=== PATIENT | female | born 1995 | race Caucasian/White ===

== ENCOUNTER 2019-09-30 09:55 | Outpatient (CLI) | payer OTHER, SELFPAY ==
[2019-09-30 10:54] LABS: Hematocrit 37.9 % (37.0-47.0); Hemoglobin 11.7 g/dL (12.0-15.0); Mean Corpuscular HGB Conc 30.9 g/dl (32-36); Mean Corpuscular Hemoglobin 25.4 pg (26-34); Mean Corpuscular Volume 82.2 fl (80-100); Mean Platelet Volume 9.5 fl (7.4-10.4); Platelet Count Result 265 k/mm3 (150-375); Red Blood Count 4.61 M/mm3 (4.2-5.4); Red Cell Distribution Width 14.5 % (11.5-14.5)
[2019-10-01 09:02] LABS: Rapid Plasma Reagin Non-Reactive (NonReactive)
== END 2019-09-30 09:56 | disposition home or self-care (01) ==
LOC: ANHLAB 09:59
PROVIDERS: Visit Provider Obstetrics & Gynecology
DX: Z01.818 Encounter for other preprocedural examination (principal); O34.219 Maternal care for unspecified type scar from previous cesarean delivery
CPT/HCPCS: 36415; 85027; 86592; 86850; 86900; 86901

== ENCOUNTER 2019-10-01 05:41 | Inpatient (IN) | payer OTHER, SELFPAY ==
--- NOTE | 2019-09-11 15:24 | PC.NURSE ---
VERIFIED WITH OR SCHEDULE AND PATIENT--C/S ON 10/01/19 AT 0730 FOR BREECH PATIENT GIVEN REQUISITION FOR LAB DRAW ON 09/30/19
[2019-10-01] VITALS (55 sets, daily range): BP systolic 78–130; BP diastolic 29–91; PULSE 64–124; RESP 14–22; TEMP 36.1–36.8; O2SAT 83–100; BMI 38.3
--- NOTE | 2019-10-01 05:41 | LDADM ---
This patient, Leonor Vázquez, was admitted to Labor/Delivery/Recovery 120 on 10/01/19 at 05:41. Plans for labor, pain management and were discussed with patient. Patient/family oriented to hospital policies and general routines including ID bracelet, bed and alarms, visiting hours, pain management, procedures, bathroom and other care routines, personal items, smoking policy, room service/diet and guest tray routines, infant security routines, and visiting hours. Patient/Family are encouraged to report perceived risks to care and to ask questions if they do not understand what they are told or what they should do. See OBIX for further documentation.
[2019-10-01] MEDS: LACTATED RINGERS 1,000 ML 125 ML IV CONT ×2 (06:30→07:05)
--- NOTE | 2019-10-01 07:07 | P.HP_ITS ---
H&P: HPI History of Present Illness Chief complaint: SECTION Narrative: Leonor Vázquez is a 24 year old female presents for due to breech presentation. Discussed ECV, declined. P[facility] records on chart. Review of Systems Constitutional: Constitutional: Reports no additional constitutional complaints Cardiovascular: Cardiovascular: Reports no additional cardiovascular complaints Respiratory: Respiratory: Reports no additional respiratory complaints Gastrointestinal: Gastrointestinal: Reports no additional gastrointestinal complaints Genitourinary: Genitourinary: Reports no additional female genitourinary complaints [facility] Family History Family History Father Kidney disease Grandparent Acute myocardial infarction Social History Social History Substance use: never Spiritual care concerns: No Meds Home Medications and Allergies Home Medications Medication Instructions Recorded Confirmed Type PNV cmb#95-ferrous fumarate-FA 1 tablet PO DAILY 09/11/19 09/11/19 History [] Allergies Allergy/AdvReac Type Severity Reaction Status Date / Time No Known Allergies Allergy Verified 09/11/19 14:53 Vital Signs Vital Signs - 24 hr 10/01/19 06:00 10/01/19 06:02 10/01/19 06:15 Pulse Rate 98 98 102 H Blood Pressure 115/70 118/62 118/75 10/01/19 06:30 Pulse Rate 104 H Blood Pressure 114/73 Exam Const: General: cooperative Nutritional Appearance: average body habitus Limitations: no limitations Resp: Auscultation: clear to auscultation bilaterally Cardio: Rate: regular rate Rhythm: regular rhythm GI: Inspection: normal to inspection GI Palp: Yes Other GI palpation findings present (FH 40cm/breech/FHT 130-140) Percussion: Yes normal to percussion Auscultation: normal bowel sounds : External Female Exam: normal external appearance Assessment and Plan Assessment and plan (1) Breech presentation: Code(s): O32.1XX0 - Maternal care for breech presentation, not applicable or unspecified Status: Acute Assessment and Plan: delivery
[2019-10-01] MEDS: ceFAZolin 2 GM/D5W 50 ML 2 GM/50 ML BAG IVPB (07:17)
--- NOTE | 2019-10-01 08:02 | WPDANESEPPF ---
Anes - Initial Pre Proc Eval Procedure: Operation Date: 10/01/19 07:30 Proposed Procedures p Primary Section - Hari Morgan MD Date/Time: 10/01/19 08:02 Surgeon: Hari Morgan MD Pre Op Diagnosis: SECTION Patient Data Age: 24 Gender: F Height: 5 ft 5 in Weight: 104.5 kg Last Vital Signs Pulse 104 H 10/01/19 06:30 BP 114/73 10/01/19 06:30 Allergies Allergy/AdvReac Type Severity Reaction Status Date / Time No Known Allergies Allergy Verified 09/11/19 14:53 Home Medications Medication Instructions Recorded Confirmed Type PNV cmb#95-ferrous fumarate-FA 1 tablet PO DAILY 09/11/19 09/11/19 History [] Patient hx anesthesia problems: none Family hx anesthesia problems: none PMFSH Family History Family History Father Kidney disease Grandparent Acute myocardial infarction Social History Social History Substance use: never Spiritual care concerns: No Anes - Eval Final PreProcedure Day of Procedure 10/01/19 08:02 Patient weight: obese Heart: regular rate and rhythm Lungs: clear to auscultation Airway: Mallampati scale class II Neurological: alert and oriented Last oral intake: >/= 8 hours ASA classification: II Emergent: no Anesthetic plan: proceed Anesthesia type and monitoring: regional spinal and standard monitoring Informed Consent: The patient's anesthetic plan and its attendant risks and benefits were discussed with the patient/family/POA. Questions were solicited and answers provided to the satisfaction of the patient/family/POA.
--- NOTE | 2019-10-01 08:09 | PM.OBPRVD ---
OB - Delivery Note Procedure Procedure: Procedures Operation Date: 10/01/19 07:30 <No data on this case meets the specified criteria> Route of delivery: Estimated blood loss (mL): 580 Anesthesia type: Spinal Disposition: PACU Narrative: Patient was prepped and draped in the usual sterile manner for this procedure. Pfannenstiel incision was made and carried down to the fascia. Fascia was then next extended bilaterally the length of the skin incision. Fascia was incised superiorly and inferiorly dissected away from the rectus muscles which were bluntly dissected. Peritoneum was readily entered bladder flap was developed. Uterus was scored and extended the lower segment. Clear fluid was noted and the breech was delivered without difficulty cord was clamped and passed off the operative field. Manual removal of the placenta followed. Uterus was exteriorized cleared of membranes and clots and then closed using a 0 Monocryl in a running interlocking manner with good approximation hemostasis noted. Uterus was turned the abdomen gutters clear serosanguineous fluid and clots in the uterine incision was still hemostatic. Fascia was approximated using 0 Vicryl from the left angle to the midline and the right angle to the midline to approximate. Subcutaneous tissue was irrigated cauterized in approximately 0 plain suture. [place] were then used to approximate the skin edges. Immediate postop condition of mother and baby were both excellent. Baby Weeks of gestation at delivery: 39 Infant gender: Female Weight (pounds): 8 Weight (ounces): 1 presentation: breech Placenta delivery description: Manual Removal score one minute: 9 score five minutes: 9
--- NOTE | 2019-10-01 11:05 | PC.NURSE ---
Patient transferred to post room #288 per stretcher from labor and delivery. Support person present. Oriented to unit, room, information board, rooming in, admission packet and security measures. Patient verbalizes understanding.
--- NOTE | 2019-10-01 12:30 | PC.NURSE ---
Mother called out for assist with feeding. Reviewed feeding cues, frequencies, duration of feedings, feeding elimination flow sheet, and signs of adequate intake. Demonstrated stimulation techniques to wake infant for feeding. Assisted with to breast. Reviewed positioning/alignment in cross cradle, holding breast in U hold and guided asymmetrical latch on. Discussed rational for each. was able to latch correctly. nursed eagerly, with steady draws and frequent swallowing noted. Reviewed signs of a correct latch, effective nursing and suck swallow ratio. Infant was able to maintain latch without discomfort to mother. Nipple care reviewed. Mother switched to cradle positioning, infant was able to maintain latch. Instructed mother to call out for RN assistance if she is unable to latch for feeding or she has discomfort with nursing. Instructed feeding should be initiated three hours from start of last feeding or if feeding cues are noted before. Mother voiced understanding of information shared.
[2019-10-01] MEDS: DEXTROSE 5%/0.45% SOD CHL 1,000 ML 125 ML IV CONT (14:20)
[2019-10-01] MEDS: IBUPROFEN 600 MG TABLET PO ×2 (16:02→23:16)
[2019-10-01] MEDS: ONDANSETRON INJ 4 MG/2 ML VIAL IV PUSH (20:20)
[2019-10-02 04:30] VITALS: BP 112/60; PULSE 82; RESP 16; TEMP 36.3; O2SAT 100
[2019-10-02] MEDS: IBUPROFEN 600 MG TABLET PO ×4 (04:54→23:50)
--- NOTE | 2019-10-02 07:30 | PC.NURSE ---
PT introductions made and plan of care discussed per post op c section, pain management, breast feeding, daily care activities. PT verbalized understanding of such care.
[2019-10-02] MEDS: POLYSACCHARIDE IRON COMPLEX 150 MG CAPSULE PO ×2 (09:32→17:48)
[2019-10-02] MEDS: MULTIVIT/MIN/PREN/FOL AC/IRON TABLET 1 TAB PO (09:32)
[2019-10-02] MEDS: DOCUSATE SODIUM 100 MG CAPSULE PO ×2 (09:32→17:48)
[2019-10-02] MEDS: SIMETHICONE 80 MG TAB.CHEW PO ×5 (09:33→22:36)
--- NOTE | 2019-10-02 09:35 | PM.OBPNVD ---
OB - PN: Subj Subjective Date/time seen: 10/02/19 09:35 Interval history: 24yo s/p LTCS for breech presentation on 10/01. Doing well this morning. Some soreness and pain. Denies shortness of breath, chest pain. Tolerating diet without nausea. Passing flatus. Patient comments: no complaints and pain well controlled [place] baby status: doing well OB - PN A/P Assessment and Plan (1) delivery, delivered, current hospitalization: Code(s): O82 - Encounter for delivery without indication Status: Acute Assessment and Plan: Routine /postop care Ambulate Pain management Time Spent With Patient Time: Total time spent is greater than 50% in coordination of care (as documented) at patient's floor/unit and/or counseling patient: Exam Const: General: comfortable, no acute distress, alert and awake Orientation/consciousness: patient oriented x3 Resp: Effort & Inspection: normal respiratory effort Auscultation: clear to auscultation bilaterally Cardio: Rate: regular rate GI: Other: soft, nontender, nondistended Psych: Appearance: grossly normal Affect: normal affect Attitude: cooperative Judgement: Good judgement present (Psych)
--- NOTE | 2019-10-02 09:49 | WPDANLDPN2 ---
Anes-Prog Note L&D Date/Time: 10/02/19 09:49 Comfortable throughout: section Neuraxial method: spinal Epidural/Spinal procedure site: clean & non-tender Neuro status: Neuro function grossly intact. Cardiovascular status: normal Respiratory status: normal Airway patency: baseline Mental status: baseline Post-Op hydration status: normal Vital Signs: Last Vital Signs Temp 36.3 C L 10/02/19 04:30 Pulse 82 10/02/19 04:30 Resp 16 10/02/19 04:30 BP 112/60 10/02/19 04:30 Pulse Ox 100 10/02/19 04:30 I/O: Intake & Output 10/01/19 10/02/19 10/02/19 23:59 07:59 15:59 Intake Total 2010 Output Total 2949 1800 Balance -939 -1300 Post-procedural complaints: none Patient feedback: Patient satisfied with anesthetic care.
[2019-10-02 10:26] VITALS: BP 103/64; PULSE 88; RESP 18; TEMP 36.6; O2SAT 100
[2019-10-02 17:39] LABS: Basophils Absolute Auto 0.1 K/mm3 (0.0-0.1); Basophils Percent Auto 0.3 % (0.2-1.2); Eosinophils Absolute Auto 0.2 K/mm3 (0-0.3); Eosinophils Percent Auto 1.3 % (0-4.4); Hematocrit 34.9 % (37.0-47.0); Hemoglobin 10.7 g/dL (12.0-15.0); Immature Granulocyte Absolute 0.11 K/mm3 (0.00-0.031); Immature Granulocyte Percent A 0.7 % (0-0.5); Lymphocytes Absolute Auto 3.03 K/mm3 (0.9-3.2); Lymphocytes Percent Auto 18.2 % (18.3-44.2); Mean Corpuscular HGB Conc 30.7 g/dl (32-36); Mean Corpuscular Hemoglobin 25.7 pg (26-34); Mean Corpuscular Volume 83.7 fl (80-100); Mean Platelet Volume 10.2 fl (7.4-10.4); Monocytes Absolute Auto 1.3 K/mm3 (0.1-0.6); Monocytes Percent Auto 7.9 % (2.6-8.5); Neutrophils Absolute Auto 11.9 K/mm3 (1.3-6.7); Neutrophils Percent Auto 71.6 % (45.5-73.1); Platelet Count Result 283 k/mm3 (150-375); Red Blood Count 4.17 M/mm3 (4.2-5.4); Red Cell Distribution Width 14.6 % (11.5-14.5); White Blood Count 16.7 K/mm3 (4.5-10.0)
[2019-10-02 19:15] VITALS: BP 104/66; PULSE 76; RESP 18; TEMP 36.1; O2SAT 100
--- NOTE | 2019-10-03 07:30 | PC.NURSE ---
PT introductions made and plan of care discussed per post op c section, pain management, breast feeding, daily care activities. PT verbalized understanding of such care.
[2019-10-03] MEDS: IBUPROFEN 600 MG TABLET PO ×3 (08:19→22:58)
[2019-10-03] MEDS: DOCUSATE SODIUM 100 MG CAPSULE PO ×2 (08:19→16:26)
[2019-10-03] MEDS: SIMETHICONE 80 MG TAB.CHEW PO ×2 (08:20→12:14)
[2019-10-03] MEDS: LORATADINE 10 MG TABLET PO (08:20)
[2019-10-03] MEDS: MULTIVIT/MIN/PREN/FOL AC/IRON TABLET 1 TAB PO (08:20)
[2019-10-03 09:15] VITALS: BP 100/60; PULSE 72; RESP 18; TEMP 36.6; O2SAT 100
--- NOTE | 2019-10-03 09:15 | PC.NURSE ---
Unable to assess medication as pt did not take it in the time it was given. PT states that she felt nauseated and did not take medication until nausea subsided.
--- NOTE | 2019-10-03 09:39 | P.PNOB_ITS ---
OB - PN: Subj Subjective Date/time seen: 10/03/19 09:39 Interval history: 24yo s/p LTCS for breech presentation on 10/01. Doing well this morning. Some soreness and pain. Denies shortness of breath, chest pain. Tolerating diet. Some nausea this morning, but no vomiting. Feels better now Passing flatus., had a BM this morning Patient comments: no complaints, pain well controlled, tolerating diet and flatus present [place] baby status: doing well [place] feeding status: exclusively bottle feeding OB - PN: Obj Data Labs CBC & Chem 7: 10/02/19 17:14 Labs: Laboratory Results - last 24 hr 10/02/19 17:14 WBC 16.7 H RBC 4.17 L Hgb 10.7 L Hct 34.9 L MCV 83.7 MCH 25.7 L MCHC 30.7 L RDW 14.6 H Plt Count 283 MPV 10.2 Immature Gran % (Auto) 0.7 H Neut % (Auto) 71.6 Lymph % (Auto) 18.2 L [place] % (Auto) 7.9 Eos % (Auto) 1.3 Baso % (Auto) 0.3 Lymph # (Auto) 3.03 [place] # (Auto) 1.3 H Eos # (Auto) 0.2 Baso # (Auto) 0.1 Abs Immat Gran (auto) 0.11 H Absolute Neuts (auto) 11.9 H Absolute Nucleated RBC 0.0 Nucleated RBC % 0.0 OB - PN A/P Time Spent With Patient Time: Total time spent is greater than 50% in coordination of care (as documented) at patient's floor/unit and/or counseling patient: Exam Const: General: comfortable, no acute distress, alert and awake Orientation/consciousness: patient oriented x3 Resp: Effort & Inspection: normal respiratory effort Auscultation: clear to auscultation bilaterally Cardio: Rate: regular rate Psych: Appearance: grossly normal Affect: normal affect Attitude: cooperative Judgement: Good judgement present (Psych)
--- NOTE | 2019-10-03 09:41 | P.DS_ITS ---
DS: Diagnosis Admitting Diagnosis Admitting Diagnosis: Maternal care for breech presentation, not applicable or un specified Discharge Diagnosis (1) delivery, delivered, current hospitalization: Code(s): O82 - Encounter for delivery without indication Status: Acute Assessment and Plan: Routine post op care Follow up in 1 week for staple removal 4 weeks for visit (2) Breech presentation: Code(s): O32.1XX0 - Maternal care for breech presentation, not applicable or unspecified Status: Acute OB - DS: Summary OB Procedures : None OB Procedures Intrapartum: low cervical, transverse OB Procedures: : None Peripartum Data Procedures: Procedures Operation Date: 10/01/19 07:30 Actual Procedures Side Surgeon p Primary Section Bilateral Hari Morgan MD Time Spent with Patient Time attestation: Total time spent providing and/or coordinating discharge services: Exam Const: General: comfortable, no acute distress, alert and awake Orientation/consciousness: patient oriented x3 Resp: Effort & Inspection: normal respiratory effort Cardio: Rate: regular rate GI: Inspection: non-distended GI Palp: Yes Soft to palpation and No Tenderness to palpation present (GI) Other: incision C/D/I. [place] in place Psych: Appearance: grossly normal Affect: normal affect Attitude: cooperative Thought content: Yes Normal thought content present Judgement: Good judgement present (Psych) DS: Data Data Completed and Pending Labs on day of discharge: Labs from last 24 hours 10/02/19 17:14 WBC 16.7 H RBC 4.17 L Hgb 10.7 L Hct 34.9 L MCV 83.7 MCH 25.7 L MCHC 30.7 L RDW 14.6 H Plt Count 283 MPV 10.2 Immature Gran % (Auto) 0.7 H Neut % (Auto) 71.6 Lymph % (Auto) 18.2 L [place] % (Auto) 7.9 Eos % (Auto) 1.3 Baso % (Auto) 0.3 Lymph # (Auto) 3.03 [place] # (Auto) 1.3 H Eos # (Auto) 0.2 Baso # (Auto) 0.1 Abs Immat Gran (auto) 0.11 H Absolute Neuts (auto) 11.9 H Absolute Nucleated RBC 0.0 Nucleated RBC % 0.0 Discharge Plan Discharge Attending physician on discharge: Juwan Mcmanus Discharging Clinician: Juwan Mcmanus Patient Disposition: Home, Self-Care Activity: may shower, no driving and as tolerated Diet: regular Patient Instructions: Antibiotic Form Stand Alone Forms: General Discharge Information Follow-up/Referrals: Hari Morgan MD [Physician] - Discharge Medications: New hydrocodone-acetaminophen 5-325 mg Tablet 1 tab PO Q3H PRN (Reason: Moderate Pain (4-6)) Qty: 16 RF: 0 docusate sodium 100 mg Capsule 100 mg PO BID Qty: 60 RF: 0 ibuprofen 600 mg Tablet 600 mg PO Q6H PRN (Reason: Cramping) Qty: 90 RF: 0 Continued PNV cmb#95-ferrous fumarate-FA [] 28 mg iron- 800 mcg Tablet 1 tablet PO DAILY RF: 0 Date of admission: 10/01/19 05:41 Primary Care Provider: PHYSICIAN,SUPPLY TECHNICIAN Admitting Provider: Hari Morgan Attending physician on admission: Hari Morgan
[2019-10-03 20:35] VITALS: BP 119/73; PULSE 91; RESP 16; TEMP 36.2; O2SAT 99
[2019-10-04] MEDS: IBUPROFEN 600 MG TABLET PO (05:30)
[2019-10-04] MEDS: SIMETHICONE 80 MG TAB.CHEW PO (05:32)
[2019-10-04 07:50] VITALS: BP 126/84; PULSE 76; RESP 18; TEMP 36.6; O2SAT 100
--- NOTE | 2019-10-04 08:15 | PC.NURSE ---
Mother called out for assist with feeding. Mother reports infant is more awake and eagerly latching within the last 24 hours. Observed mother is able to independently latch with appropriate positioning/alignment. Reviewed positioning/alignment in football, holding breast in C hold and guided asymmetrical latch on. Discussed rational for each. Infant nursed eagerly, with steady draws and frequent swallowing noted. Reviewed signs of a correct latch, effective nursing and suck swallow ratio. was able to maintain latch without discomfort to mother. Demonstrated how to adjust latch more deeply while feeding. Nipple care reviewed. Mother voiced understanding of information shared. Reviewed infant feeding cues, frequencies, duration of feedings, feeding elimination flow sheet, and signs of adequate intake. Mother is feeding as required and waking to feed if needed. Infant is currently meeting outcomes for weight, output, jaundice and feeding frequencies. Mother states she feels confident to continue effective at home. Reviewed transition to breast milk, signs of adequate intake, and engorgement/relief. Instructed to call ICP if intake/output less than required. Reviewed regular medications mother is taking. Information provided per [place]. Reviewed community resources on the [facility] website and in the Mom/Baby guide. Information on outpatient services provided. Mother has no further questions at this time.
[2019-10-04] MEDS: DOCUSATE SODIUM 100 MG CAPSULE PO (09:21)
[2019-10-04] MEDS: MULTIVIT/MIN/PREN/FOL AC/IRON TABLET 1 TAB PO (09:21)
--- NOTE | 2019-10-04 09:51 | PC.NURSE ---
Patient viewed the discharge video Mother & Baby Care, The First Two Weeks . Patient was given the opportunity and encouraged to ask questions. Patient verbalized understanding of information shared and has been given the mother/baby guide for home reference.
[2019-10-06 10:49] VITALS: BP 116/74; PULSE 97; RESP 20; TEMP 36.9
== END 2019-10-04 12:21 | disposition home or self-care (01) | DRG 788 ==
LOC: ANHOB2 10-03 09:46 → ANHLDR 10-06 11:27 → ANHOB2 10-06 11:27
PROVIDERS: Admitting Provider Obstetrics & Gynecology; Visit Provider Obstetrics & Gynecology
PROC: 10D00Z1 Extraction of Products of Conception, Low, Open Approach (ICD-10-PCS; CPT 59514; principal; 2019-10-01 07:30)
DX: O32.1XX0 Maternal care for breech presentation, not applicable or unspecified (principal); Z3A.39 39 weeks gestation of pregnancy; Z37.0 Single live birth
CPT/HCPCS: 36415; 85025; 85027; 86592; 86850; 86900; 86901; A9270; J0131; J0690; J2274; J2370; J2405; J2590; J2704; J3010; J7120

== ENCOUNTER 2020-11-16 13:17 | Outpatient (CLI) | payer SELFPAY ==
[2020-11-16 14:09] LABS: Hematocrit 39.7 % (37.0-47.0); Hemoglobin 12.1 g/dL (12.0-15.0); Mean Corpuscular HGB Conc 30.5 g/dl (32-36); Mean Corpuscular Hemoglobin 23.6 pg (26-34); Mean Corpuscular Volume 77.5 fl (80-100); Mean Platelet Volume 9.9 fl (7.4-10.4); Platelet Count Result 264 k/mm3 (150-375); Red Blood Count 5.12 M/mm3 (4.2-5.4)
[2020-11-17 08:39] LABS: Rapid Plasma Reagin Non-Reactive (NonReactive)
== END 2020-11-16 13:18 | disposition home or self-care (01) ==
PROVIDERS: PCP Obstetrics & Gynecology; Visit Provider Obstetrics & Gynecology
DX: Z01.818 Encounter for other preprocedural examination (principal)
CPT/HCPCS: 36415; 85027; 86592; 86850; 86900; 86901

== ENCOUNTER 2020-11-17 05:31 | Inpatient (IN) | payer OTHER, SELFPAY ==
--- NOTE | 2020-10-18 13:56 | PC.NURSE ---
VERIFIED WITH OR SCHEDULE AND PATIENT--REPEAT C/S ON 11/17/20 AT 0730 PATIENT GIVEN REQUISITION FOR LAB DRAW ON 11/16/20
[2020-11-17] VITALS (57 sets, daily range): BP systolic 74–121; BP diastolic 43–93; PULSE 69–131; RESP 16–20; TEMP 36.1–36.8; O2SAT 82–100; BMI 41.1
[2020-11-17] MEDS: LACTATED RINGERS 1,000 ML 125 ML IV CONT ×2 (06:17→09:55)
--- NOTE | 2020-11-17 06:28 | LDADM ---
This patient, Leonor Vázquez, was admitted to Labor/Delivery/Recovery 120 on 11/17/20 at 05:31. Plans for repeat section, pain management and were discussed with patient. Patient/family oriented to hospital policies and general routines including ID bracelet, bed and alarms, visiting hours, pain management, procedures, bathroom and other care routines, personal items, smoking policy, room service/diet and guest tray routines, infant security routines, and visiting hours. Patient/Family are encouraged to report perceived risks to care and to ask questions if they do not understand what they are told or what they should do. See OBIX for further documentation.
--- NOTE | 2020-11-17 07:06 | WPDANESEPPF ---
Anes - Initial Pre Proc Eval Procedure: Operation Date: 11/17/20 07:30 Proposed Procedures p Repeat Section - Hari Morgan MD Date/Time: 11/17/20 07:06 Surgeon: Hari Morgan MD Pre Op Diagnosis: Section Patient Data Age: 25 Gender: F Height: 5 ft 5 in Weight: 112 kg Last Vital Signs Temp 36.8 C 11/17/20 05:51 Pulse 104 H 11/17/20 06:00 BP 108/67 11/17/20 06:00 Allergies Allergy/AdvReac Type Severity Reaction Status Date / Time No Known Allergies Allergy Verified 10/18/20 13:43 Home Medications Medication Instructions Recorded Confirmed Type PNV cmb#95-ferrous fumarate-FA 1 tablet PO DAILY 09/11/19 11/17/20 History [] Patient hx anesthesia problems: none Family hx anesthesia problems: none PMFSH Family History Family History Father Kidney disease Grandparent Acute myocardial infarction Social History Social History Smoking status: Never smoker Substance use: never Spiritual care concerns: No Anes - Eval Final PreProcedure Day of Procedure 11/17/20 07:06 Patient weight: morbidly obese Heart: regular rate and rhythm Lungs: clear to auscultation Airway: Mallampati scale class II Neurological: alert and oriented Last oral intake: >/= 8 hours ASA classification: III Emergent: no Anesthetic plan: proceed Anesthesia type and monitoring: regional spinal and standard monitoring Informed Consent: The patient's anesthetic plan and its attendant risks and benefits were discussed with the patient/family/POA. Questions were solicited and answers provided to the satisfaction of the patient/family/POA.
--- NOTE | 2020-11-17 07:14 | PM.IMHP ---
H&P: HPI History of Present Illness Date/Time: 11/17/20 07:14 5-year-old 2 para 1001 presents at 39 weeks for repeat delivery. care has been uncomplicated and consistent with her records also attached to this chart. Denies any other significant complaints or concerns today. We have discussed tubal ligation at this point she declines. Chief Complaint: Review of Systems Review of Systems: All systems reviewed & are unremarkable except as noted in HPI and below PMFSH Family History Family History Father Kidney disease Grandparent Acute myocardial infarction Social History Social History Smoking status: Never smoker Substance use: never Spiritual care concerns: No Meds Home Medications and Allergies Home Medications Medication Instructions Recorded Confirmed Type PNV cmb#95-ferrous fumarate-FA 1 tablet PO DAILY 09/11/19 11/17/20 History [] Allergies Allergy/AdvReac Type Severity Reaction Status Date / Time No Known Allergies Allergy Verified 10/18/20 13:43 Vital Signs Vital Signs - 24 hr 11/17/20 05:51 11/17/20 06:00 Temperature 36.8 C Pulse Rate 103 H 104 H Blood Pressure 108/68 108/67 Exam Const: General: cooperative Resp: Effort & Inspection: normal respiratory effort Auscultation: clear to auscultation bilaterally Cardio: Rate: regular rate Rhythm: regular rhythm GI: Inspection: normal to inspection : Bimanual exam- vagina & uterus: enlarged ( Fundal height 40cm heart tones 140 and reactive) Assessment and Plan Assessment and plan (1) 39 weeks gestation of : Code(s): Z3A.39 - 39 weeks gestation of Status: Acute (2) Previous delivery affecting : Code(s): O34.219 - Maternal care for unspecified type scar from previous delivery Status: Acute Additional Plan proceed with repeat low transverse section
--- NOTE | 2020-11-17 07:16 | WPDHPUPDATE1 ---
History and Physical Update Update Date/Time: 11/17/20 07:16 History and Physical has been reviewed, including an updated exam of the patient. There are NO changes in the patient's condition. Risks, benefits, and alternatives have been discussed and questions answered. Patient agrees to proceed with procedure.
--- NOTE | 2020-11-17 09:43 | PM.OBPRVD ---
OB - Delivery Note Procedure Procedure: Procedures Operation Date: 11/17/20 07:30 <No data on this case meets the specified criteria> Route of delivery: Specimen: No Quantitative Blood Loss (ml): 250 Anesthesia type: Spinal Disposition: floor Narrative: Patient prepped and draped in usual manner for this procedure. Pfannenstiel incision was made which was carried down to the fascia and extended bilaterally the length the skin incision. Superiorly and inferiorly dissected away from rectus muscles and peritoneum readily entered and bladder flap developed. Lower incision made the uterus which was extended bilaterally the length of the lower segment with clear fluid noted. Vertex was delivered with nuchal cord x2 in the rest of baby was delivered with cord clamped and cut. Placenta removed without difficulty and uterus was exteriorized and cleared of membranes and clots. Uterine incision closed using 0 Monocryl running interlocking manner with good approximation hemostasis noticed with the uterus returned to the abdominal cavity. Again inspected and noted to be hemostatic with all subfascial tissue noted be hemostatic. 0 Vicryl in a running manner from left angle midline right angle to midline with good approximation hemostasis noted. All subcutaneous tissue was cauterized and was approximated using 0 plain. [place] used to approximate skin edges patient was then sent to recovery room and stable condition. [place] Baby Weeks of gestation at delivery: 39 Infant gender: Male Weight (pounds): 8 Weight (ounces): 5 score one minute: 8 score five minutes: 9
--- NOTE | 2020-11-17 12:10 | OBPPTRN ---
Patient transferred to post room # 278 via stretcher. Support person present. Oriented to unit, room, information board, rooming in, admission packet and security measures. Patient verbalizes understanding.
[2020-11-17] MEDS: OXYTOCIN 30 UNITS/NS 500 ML 30 UNITS/500 ML BAG 125 UNITS IV CONT (12:38)
[2020-11-17] MEDS: diphenhydrAMINE HCl INJ 50 MG/ML VIAL 25 MG IV PUSH (14:29)
[2020-11-17] MEDS: HYDROcodone/acetaminophen (*CRX) 5-325 MG TABLET 1 TAB PO (14:33)
[2020-11-17] MEDS: KETOROLAC 30 MG/ML VIAL (*BKC) IV PUSH (14:33)
[2020-11-17] MEDS: DEXTROSE 5%/0.45% SOD CHL 1,000 ML 125 ML IV CONT (16:29)
[2020-11-17] MEDS: SIMETHICONE 80 MG TAB.CHEW PO (19:05)
[2020-11-17] MEDS: HYDROcodone/acetaminophen (*CRX) 10-325 MG TABLET 1 TAB PO ×2 (19:05→22:52)
[2020-11-17] MEDS: DOCUSATE SODIUM 100 MG CAPSULE PO (19:05)
[2020-11-17] MEDS: IBUPROFEN 600 MG TABLET PO (20:41)
[2020-11-18 04:10] VITALS: BP 101/59; PULSE 76; RESP 18; TEMP 36.1; O2SAT 100
[2020-11-18] MEDS: IBUPROFEN 600 MG TABLET PO ×3 (04:12→19:31)
[2020-11-18] MEDS: HYDROcodone/acetaminophen (*CRX) 10-325 MG TABLET 1 TAB PO ×4 (04:12→23:11)
[2020-11-18 05:58] LABS: Basophils Absolute Auto 0.1 K/mm3 (0.0-0.1); Basophils Percent Auto 0.4 % (0.2-1.2); Eosinophils Absolute Auto 0.2 K/mm3 (0-0.3); Eosinophils Percent Auto 1.8 % (0-4.4); Hematocrit 35.9 % (37.0-47.0); Hemoglobin 10.7 g/dL (12.0-15.0); Immature Granulocyte Absolute 0.05 K/mm3 (0.00-0.031); Immature Granulocyte Percent A 0.4 % (0-0.5); Lymphocytes Absolute Auto 2.78 K/mm3 (0.9-3.2); Lymphocytes Percent Auto 21.5 % (18.3-44.2); Mean Corpuscular HGB Conc 29.8 g/dl (32-36); Mean Corpuscular Hemoglobin 23.9 pg (26-34); Mean Corpuscular Volume 80.1 fl (80-100); Mean Platelet Volume 10.2 fl (7.4-10.4); Neutrophils Absolute Auto 8.8 K/mm3 (1.3-6.7); Neutrophils Percent Auto 67.9 % (45.5-73.1); Platelet Count Result 242 k/mm3 (150-375); Red Blood Count 4.48 M/mm3 (4.2-5.4); Red Cell Distribution Width 16.2 % (11.5-14.5); White Blood Count 12.9 K/mm3 (4.5-10.0)
[2020-11-18 07:22] LABS: Platelet Estimate Adequate (Adequate)
[2020-11-18 07:23] LABS: Hypochromasia 1+ (NORMAL); Ovalocytes 1+ (NORMAL)
--- NOTE | 2020-11-18 07:48 | WPDANLDPN2 ---
Anes-Prog Note L&D Date/Time: 11/18/20 07:48 Comfortable throughout: section Neuraxial method: spinal Epidural/Spinal procedure site: clean & non-tender Neuro status: Neuro function grossly intact. Cardiovascular status: normal Respiratory status: normal Airway patency: baseline Mental status: baseline Post-Op hydration status: normal Vital Signs: Last Vital Signs Temp 36.1 C L 11/18/20 04:10 Pulse 76 11/18/20 04:10 Resp 18 11/18/20 04:10 BP 101/59 L 11/18/20 04:10 Pulse Ox 100 11/18/20 04:10 Pain score (VAS): 3 I/O: Intake & Output 11/17/20 11/17/20 11/18/20 15:59 23:59 07:59 Intake Total 1100 3000 800 Output Total 2500 1800 Balance 1100 500 -1000 Post-procedural complaints: none Patient feedback: Patient satisfied with anesthetic care.
--- NOTE | 2020-11-18 07:48 | WPDANLDNPN2 ---
Anes-Prog Note L&D-Neuraxial Date/Time: 11/18/20 07:48 Neuraxial medications: intrathecal PF morphine Opiod-related complaints: none Patient feedback: Patient satisfied with post-operative pain management.
[2020-11-18] MEDS: SIMETHICONE 80 MG TAB.CHEW PO (08:19)
[2020-11-18] MEDS: DOCUSATE SODIUM 100 MG CAPSULE PO ×2 (08:19→16:30)
[2020-11-18] MEDS: MULTIVIT/MIN/PREN/FOL AC/IRON TABLET 1 TAB PO (08:19)
[2020-11-18] MEDS: LANOLIN (LANSINOH) 7.5 GM CREAM 1 APPLIC TOPICAL (08:20)
[2020-11-18 08:55] VITALS: BP 107/65; PULSE 81; RESP 18; TEMP 36.2; O2SAT 100
--- NOTE | 2020-11-18 10:32 | P.PNOB_ITS ---
OB - PN: Subj Subjective Date/time seen: 11/18/20 10:32 POD#1 Leonor reports doing great today. She reports her pain is controlled. She has tolerated regular diet. She has voided and passed gas. She reports her bleeding is light. She has ambulated around the room. She would like her son to get circumcised. She denies CP, SOB, fever, chills, N/V, SOLOMON, vision changes, palpitations or dizziness. OB - PN: Obj Data Labs CBC & Chem 7: 11/18/20 04:51 Labs: Laboratory Results - last 24 hr 11/18/20 04:51 WBC 12.9 H RBC 4.48 Hgb 10.7 L Hct 35.9 L MCV 80.1 MCH 23.9 L MCHC 29.8 L RDW 16.2 H Plt Count 242 MPV 10.2 Immature Gran % (Auto) 0.4 Neut % (Auto) 67.9 Lymph % (Auto) 21.5 [place] % (Auto) 8.0 Eos % (Auto) 1.8 Baso % (Auto) 0.4 Lymph # (Auto) 2.78 [place] # (Auto) 1.0 H Eos # (Auto) 0.2 Baso # (Auto) 0.1 Abs Immat Gran (auto) 0.05 H Absolute Neuts (auto) 8.8 H Absolute Nucleated RBC 0.0 Nucleated RBC % 0.0 Platelet Estimate Adequate Hypochromasia 1+ Ovalocytes 1+ OB - PN A/P Assessment and Plan (1) Previous delivery affecting : Code(s): O34.219 - Maternal care for unspecified type scar from previous delivery Status: Acute (2) delivery, delivered, current hospitalization: Code(s): O82 - Encounter for delivery without indication Status: Acute Plan day: 1 Plan: routine care Comments: - Her son was circumcised w/o issue - meeting all postop milestones; poss d/c home tomorrow Time Spent With Patient Time: Total time spent is greater than 50% in coordination of care (as documented) at patient's floor/unit and/or counseling patient: Review of Systems Review of Systems: All systems reviewed & are unremarkable except as noted in HPI and below (HPI) Exam Const: General: cooperative, healthy appearing, comfortable and no acute distress Resp: Effort & Inspection: normal respiratory effort and able to speak in complete sentences Auscultation: clear to auscultation bilaterally Cardio: Rate: regular rate GI: Inspection: non-distended GI Palp: Yes abdominal tenderness and Yes Soft to palpation Auscultation: normal bowel sounds Other: pfannenstiel i ncision covered w/ clean dressing : Other: fundus firm below umbilicus Skin: General skin exam: normal color Neuro: General: patient oriented x3 Psych: Appearance: grossly normal Affect: normal affect Attitude: cooperative
[2020-11-18] MEDS: HYDROcodone/acetaminophen (*CRX) 5-325 MG TABLET 1 TAB PO ×2 (11:58→19:31)
[2020-11-18 20:30] VITALS: BP 107/64; PULSE 73; RESP 18; TEMP 36.1; O2SAT 100
[2020-11-19] MEDS: IBUPROFEN 600 MG TABLET PO ×2 (04:52→13:41)
[2020-11-19] MEDS: HYDROcodone/acetaminophen (*CRX) 10-325 MG TABLET 1 TAB PO ×3 (04:52→13:41)
--- NOTE | 2020-11-19 08:27 | P.DS_ITS ---
DS: Admitting Diagnosis Admitting Diagnosis Admitting Diagnosis: Scheduled section DS: Discharge Diagnosis Discharge Diagnosis (1) Previous delivery affecting : Code(s): O34.219 - Maternal care for unspecified type scar from previous delivery Status: Acute (2) delivery, delivered, current hospitalization: Code(s): O82 - Encounter for delivery without indication Status: Acute OB - DS: Summary OB Procedures : None OB Procedures Intrapartum: low cervical, transverse OB Procedures: : None Peripartum Data Procedures: Procedures Operation Date: 11/17/20 07:30 Actual Procedures Side Surgeon p Repeat Section Hari Morgan MD Time Spent with Patient Time attestation: Total time spent providing and/or coordinating discharge services: Exam Const: General: cooperative, healthy appearing, comfortable and no acute distress Orientation/consciousness: patient oriented x3 Resp: Effort & Inspection: normal respiratory effort and able to speak in complete sentences Auscultation: clear to auscultation bilaterally Cardio: Rate: regular rate Rhythm: regular rhythm GI: Inspection: normal to inspection and non-distended Auscultation: normal bowel sounds Other: incision C/D/I Skin: General skin exam: normal color Neuro: General: patient oriented x3 Psych: Appearance: grossly normal Affect: normal affect Attitude: cooperative Discharge Plan Discharge Attending physician on discharge: Pham Jorgensen Consulting providers: Flaquito Bee Discharging Clinician: Pham Jorgensen Anticipated Discharge Date/Time: 11/19/20 14:00 Patient Disposition: Home, Self-Care Activity: may shower and pelvic rest Diet: regular Patient Instructions: Antibiotic Form Stand Alone Forms: General Discharge Information Follow-up/Referrals: Hari Morgan MD [Physician] - 1 Week (staple removal) Discharge Medications: New acetaminophen [Mapap (acetaminophen)] 325 mg Tablet 650 mg PO Q6H PRN (Reason: Mild Pain (1-3)) 10 Days Qty: 60 RF: 0 docusate sodium 100 mg Capsule 100 mg PO BID 30 Days Qty: 60 RF: 0 hydrocodone-acetaminophen 5-325 mg Tablet 1 tablet PO Q3H PRN (Reason: Moderate Pain (4-6)) 3 Days Qty: 20 RF: 0 ibuprofen 600 mg Tablet 600 mg PO Q6H PRN (Reason: Cramping) 10 Days Qty: 40 RF: 0 Continued PNV [id number] fumarate-FA [] 28 mg iron- 800 mcg Tablet 1 tablet PO DAILY 90 Days Qty: 90 RF: 0 Date of admission: 11/17/20 05:31 Primary Care Provider: PHYSICIAN,[employer] Admitting Provider: Hari Morgan Attending physician on admission: Hari Morgan Condition: Stable
[2020-11-19] MEDS: DOCUSATE SODIUM 100 MG CAPSULE PO (09:59)
[2020-11-19] MEDS: MULTIVIT/MIN/PREN/FOL AC/IRON TABLET 1 TAB PO (09:59)
[2020-11-19 11:03] VITALS: BP 95/54; PULSE 79; RESP 18; TEMP 36.8; O2SAT 96
[2020-11-20 07:56] VITALS: BP 110/66; PULSE 78; RESP 20; TEMP 36.6; O2SAT 99
== END 2020-11-19 13:50 | disposition home or self-care (01) | DRG 788 ==
LOC: ANHOB2 11-18 13:33 → ANHLDR 11-21 14:46 → ANHOB2 11-21 14:46
PROVIDERS: Obstetrics & Gynecology; Admitting Provider Obstetrics & Gynecology; Visit Provider Obstetrics & Gynecology
PROC: 10D00Z1 Extraction of Products of Conception, Low, Open Approach (ICD-10-PCS; CPT 59514; principal; 2020-11-17 07:30)
DX: O34.211 Maternal care for low transverse scar from previous cesarean delivery (principal); Z37.0 Single live birth; Z3A.39 39 weeks gestation of pregnancy; O99.214 Obesity complicating childbirth; E66.01 Morbid (severe) obesity due to excess calories; O69.81X0 Labor and delivery complicated by cord around neck, without compression, not applicable or unspecified
CPT/HCPCS: 36415; 85025; A9270; J0131; J1200; J1885; J2274; J2370; J2590; J7120